=== PATIENT | male | born 1975 | race Two or more races ===

== ENCOUNTER 2016-10-10 08:47 | Emergency (ER) | payer OTHER, MEDICAID ==
--- NOTE | 2016-10-10 09:49 | RAD ---
Exam: Three-view left ankle COMPARISON: None INDICATION: Left foot and ankle pain since 10/06/2016 after stepping on uneven surface at work. Findings: AP, lateral and oblique views of the left ankle were obtained. Mild soft tissue swelling is seen laterally. Overall normal bone mineralization. No fracture is identified. Ankle mortise is intact. IMPRESSION: No acute osseous abnormality in the left ankle.
== END 2016-10-10 10:07 | disposition home or self-care (01) ==
LOC: ED 08:47
DX: S93.402A Sprain of unspecified ligament of left ankle, initial encounter (principal); X50.0XXA Overexertion from strenuous movement or load, initial encounter; Y93.01 Activity, walking, marching and hiking; Y92.9 Unspecified place or not applicable